=== PATIENT | female | born 1975 | race African-American/Black ===

== ENCOUNTER 2019-02-05 22:20 | Emergency (ER) | payer SELFPAY ==
[~2019-02-05] VITALS: Ht 167.6 cm; Wt 82.0 kg
[2019-02-05 23:00] VITALS: BP 107/58
[2019-02-06] MEDS ORDERED: LIDOCAINE 1%/EPI 1:100,000 10 ML VIAL IJ ONE (00:30)
== END 2019-02-06 00:06 | disposition home or self-care (01) ==
LOC: ER 22:20
DX: T54.91XA Toxic effect of unspecified corrosive substance, accidental (unintentional), initial encounter (principal); R11.10 Vomiting, unspecified; Y92.9 Unspecified place or not applicable
CPT/HCPCS: 99283; J3490